=== PATIENT | female | born 1995 | race Caucasian/White ===

== ENCOUNTER → 2024-02-27 10:40 | Outpatient (CLI) | payer OTHER, SELFPAY ==
[2024-02-27 11:42] LABS: Add Manual Diff / Slide Review NO; Basophils Absolute Auto 100 /uL (0-100); Basophils Percent Auto 0.5 % (0-2); Eosinophils Absolute Auto 0 /uL (0-450); Eosinophils Percent Auto 0.4 % (2-4); Hematocrit 37.5 % (36-46); Hemoglobin 12.8 g/dL (12.0-16.0); Lymphocytes Absolute Auto 2200 /uL (1100-4500); Lymphocytes Percent Auto 20.1 % (25-40); Mean Corpuscular HGB Conc 34.1 % (30-36); Mean Corpuscular Hemoglobin 29.6 PG (26-34); Mean Corpuscular Volume 86.9 fL (80-100); Monocytes Absolute Auto 400 /uL (0-900); Monocytes Percent Auto 3.8 % (3-14); Neutrophils Absolute Auto 8200 /uL (1500-7000); Neutrophils Percent Auto 75.2 % (50-75); Platelet Count 339 X10^3/uL (150-400); Red Blood Cell Count 4.32 X10^6/uL (4.0-5.2); Red Cell Distribution Width 12.7 % (11.6-14.8); White Blood Cell Count 10.9 X10^3/uL (4.5-11.0)
[2024-02-27 11:59] LABS: Hemoglobin A1C% w Est Avg Glu 4.8 % (4.0-6.0)
[2024-02-27 12:05] LABS: Appearance Urine UA CLEAR; Bilirubin Urine UA NEGATIVE (NEGATIVE); Color Urine UA YELLOW; Glucose Urine UA NEGATIVE (Negative); Ketones Urine UA NEGATIVE (NEGATIVE); Leukocyte Esterase Urine UA 1+ (NEGATIVE); Nitrite Urine UA NEGATIVE (Negative); Occult Blood Urine UA NEGATIVE (Negative); Protein Urine UA NEGATIVE (Negative); Specific Gravity Urine UA <=1.005 (1.000-1.035); Urobilinogen Urine UA 0.2 E.U./dL (0.2)
[2024-02-27 12:06] LABS: pH Urine UA 6.5 (4.5-8.0)
[2024-02-27 12:18] LABS: Bacteria Urine Moderate (10-30); RBC Urine 0-1/HPF (0-5/HPF); Urine Volume 10mL (spun); WBC Urine 1-5/HPF (0-5/HPF)
[2024-02-27 12:19] LABS: Squamous Epithelial Cell Urine 1-5 /HPF (0-5/HPF)
[2024-02-27 12:23] LABS: Natera Collection Specimen Collected
[2024-02-27 13:15] LABS: Hepatitis B Surface Antigen NEGATIVE s/c (NEGATIVE); Rubella Antibody IgG 18.5 IU/mL (>15)
[2024-02-27 13:31] LABS: HIV 1 & 2 Ab/Ag 4th Gen Combo NEGATIVE (NEGATIVE); Hep C Virus Ab w/Reflex Quant NEGATIVE s/c (NEGATIVE)
[2024-02-28 04:14] LABS: RPR Screen Non Reactive (Non Reactive)
[2024-02-28 09:09] LABS: Varicella IgG Antibody Reactive (Non Reactive)
== END ==
PROVIDERS: PCP Family Medicine; Referring Provider Family Medicine; Visit Provider Family Medicine
DX: Z34.01 Encounter for supervision of normal first pregnancy, first trimester (principal); E88.819 Insulin resistance, unspecified; E28.2 Polycystic ovarian syndrome
CPT/HCPCS: 36415; 80055; 81003; 81015; 83036; 86787; 86803; 86850; 86900; 86901; 87086; 87389

== ENCOUNTER → 2024-04-18 13:44 | Outpatient (CLI) | payer OTHER, SELFPAY | PROVIDERS: PCP Family Medicine; Visit Provider Family Medicine | DX: J02.9 Acute pharyngitis, unspecified (principal) | CPT/HCPCS: 87070 ==

== ENCOUNTER → 2024-05-22 13:50 | Outpatient (CLI) | payer OTHER, SELFPAY ==
--- NOTE | 2024-05-22 13:51 | DI.US.S_ITS ---
PROCEDURE: US OB >= 14 WEEKS FETUS INDICATIONS: Anatomy Scan OUTSIDE/PRIOR DATING DATA: Last menstrual period (LMP): 12/23/2023 LMP-based estimated date of delivery (LIBORIO): 09/28/2024 The calculations are made using the clinical LIBORIO of 09/28/2024 TECHNIQUE: Real-time scanning was performed of the fetus, with image documentation and biometric measurements. Endovaginal scanning: Not performed COMPARISON: None. FINDINGS: General: A single living intrauterine gestation is present. Presentation: Vertex Placenta: Placental position is anterior, without previa. Amniotic fluid index: 13.5 cm, normal range is 5-24 cm. Single deepest vertical pocket is 4.2 cm. heart rate: 143 beats per minute. Maternal cervical canal: 4.3 cm long. Normal lower limit is 2.5 cm. biometrics: Biparietal diameter: 4.8 cm, 20 weeks 3 days Head circumference: 17.8 cm, 20 weeks 2 days Abdominal circumference: 16.5 cm, 21 weeks 4 days Femur length: 3.5 cm, 21 weeks 1 day Clinically estimated gestational age: 21 weeks 4 days Composite gestational age from present scan: 20 weeks 6 days Estimated weight and percentile: 407 g, 26th percentile Anatomic survey: Neuro: Ventricles are non-dilated at less than 10 mm. Cisterna magna is normal at 3-11 mm. Cerebellum is normal in size and morphology. Nuchal skin fold: Normal at less than 6 mm between 14-21 weeks gestational age. Face: Nose and lips are normal. Facial profile not well visualized. Spine: No evidence for spina bifida. Heart: 4-chambered heart is present, with normal ventricular outflow tracts. Diaphragm: Diaphragm is intact. Stomach: Left-sided stomach is present. Kidneys: No hydronephrosis. Normal is less than 5 mm in 2nd trimester, less than 7 mm in 3rd trimester. Cord: 3-vessel cord has orthotopic insertion. Bladder: Normal in size. Extremities: All 4 extremities identified. IMPRESSION: 1. Single live intrauterine . size is concordant with clinical dates. 2. facial profile not well visualized due to positioning. 3. anatomic survey is otherwise within normal limits. Approved by: Ranjit Fan M.D. on 05/22/2024 at 20:44
== END ==
PROVIDERS: PCP Family Medicine; Referring Provider Family Medicine; Visit Provider Family Medicine
DX: Z34.92 Encounter for supervision of normal pregnancy, unspecified, second trimester (principal); Z3A.20 20 weeks gestation of pregnancy
CPT/HCPCS: 76811

== ENCOUNTER → 2024-06-10 14:35 | Outpatient (CLI) | payer OTHER, SELFPAY ==
[2024-06-10 17:37] LABS: GTT (PREG) 1 Hour PP 50gm Dose 121 mg/dL (76-139)
== END ==
PROVIDERS: PCP Family Medicine; Referring Provider Family Medicine; Visit Provider Family Medicine
DX: Z34.00 Encounter for supervision of normal first pregnancy, unspecified trimester (principal)
CPT/HCPCS: 36415; 82950

== ENCOUNTER → 2024-09-05 15:26 | Outpatient (CLI) | payer OTHER, SELFPAY ==
[2024-09-06 12:46] LABS: Strep Grp B PCR NEG for Grp B Strep
== END ==
LOC: LAB 15:26
PROVIDERS: PCP Family Medicine; Visit Provider Family Medicine
DX: Z34.00 Encounter for supervision of normal first pregnancy, unspecified trimester (principal)
CPT/HCPCS: 87653

== ENCOUNTER 2024-09-22 18:19 | Outpatient (CLI) | payer OTHER, SELFPAY ==
[2024-09-22 19:16] LABS: Basophils Absolute Auto 100 /uL (0-100); Basophils Percent Auto 0.5 % (0-2); Creatinine Urine Random 51.04 mg/dL; Mean Corpuscular Volume 88.8 fL (80-100); Monocytes Absolute Auto 700 /uL (0-900); Protein (Total) Urine Random 11 mg/dL (0-12); Protein Creatinine Ratio Urine 0.21 GRAM/24H
[2024-09-22 19:20] LABS: Add Manual Diff / Slide Review NO; Eosinophils Absolute Auto 0 /uL (0-450); Eosinophils Percent Auto 0.4 % (2-4); Hematocrit 36.8 % (36-46); Hemoglobin 12.4 g/dL (12.0-16.0); Lymphocytes Absolute Auto 2700 /uL (1100-4500); Lymphocytes Percent Auto 22.8 % (25-40); Mean Corpuscular HGB Conc 33.7 % (30-36); Mean Corpuscular Hemoglobin 29.9 PG (26-34); Monocytes Percent Auto 5.5 % (3-14); Neutrophils Absolute Auto 8500 /uL (1500-7000); Neutrophils Percent Auto 70.8 % (50-75); Platelet Count 288 X10^3/uL (150-400); Red Blood Cell Count 4.15 X10^6/uL (4.0-5.2); Red Cell Distribution Width 14.1 % (11.6-14.8)
[2024-09-22 19:28] LABS: Alanine Aminotransferase 15 IU/L (<35); Albumin 3.7 g/dL (3.5-5.0); Albumin Globulin Ratio 1.2 (1.0-2.8); Alkaline Phosphatase 91 U/L (38-126); Aspartate Aminotransferase 20 IU/L (14-36); BUN Creatinine Ratio 22.6 (6-22); Bilirubin Total 0.3 mg/dL (0.2-1.3); Blood Urea Nitrogen 12 mg/dL (7-17); Carbon Dioxide 17 mmol/L (22-32); Chloride 108 mmol/L (98-107); Estimated Glomerular Filt Rate > 60 mL/min (>60); Globulin 3.2 g/dL (1.7-4.1); Glucose 89 mg/dL (70-99); HEMOLYSIS < 15 (0-50); Potassium 3.5 mmol/L (3.4-5.1); Sodium 133 mmol/L (137-145); Total Protein 6.9 g/dL (6.3-8.2); Uric Acid 4.7 mg/dL (2.5-6.2)
--- NOTE | 2024-09-22 20:06 | P.TNLD_ITS ---
Visit Information Visit Information Date of evaluation: 09/22/24 Primary OB Provider: Esteban Kenney On-call OB Provider: Sheryl Shafer Reason for Evaluation: Yes other Comments/Additional reasons for admission: Pt is a 28 year old G1 at 39 weeks gestation who presents with elevated BP at home 130's/90's. No JOHNSON currently or visual changes. Good FM.. Vital Signs Vital Signs: BP 110's/70's [facility] Medical History (Updated 07/14/24 @ 21:56 by Esteban Kenney MD) Recurrent UTI Surgical History (Updated 02/26/24 @ 11:06 by Chayo Padgett, RN) History of removal of skin mole [place] teeth extracted Family History (Updated 02/26/24 @ 11:40 by Chayo Padgett, RN) Grandfather Prostate cancer Aunt Hypertension Hypoglycemia Hypothyroidism Grandmother Endometriosis Mother Endometriosis Ovarian cyst Cervical polyp Blood dyscrasia Preeclampsia Family/Other SMA (spinal muscular atrophy) Grandfather Myasthenia gravis Prostate cancer Social History marital status: number of children: 0 household members: spouse lives independently: Yes caregiver/support person: No housing: condominium pets and animals: Yes (cat and dog, aware of precautions) education level: college occupational status: employed current occupational exposures/hazards: No special prisca needs: No travel history: recent seatbelt use: always helmet use: No water heater temp set < 120 deg: No (will have adjust prior to delivery) working smoke detector in home: Yes fire extinguisher in home: Yes carbon monox detector in home: Yes firearms in home: Yes firearms unloaded and locked: Yes do you feel safe at home: Yes second hand exposure: No alcohol intake: former substance use type: does not use during the past year weight has: remained stable well-balanced diet: daily or most days daily servings fruits/ve-4 caffeine: Yes (single AM cup coffee) Type(s) of exercise: walking Objective Labs 09/22/24 18:36 09/22/24 18:36 Labs: Laboratory Results - last 24 hr 09/22/24 18:36 WBC 12.0 H RBC 4.15 Hgb 12.4 Hct 36.8 MCV 88.8 MCH 29.9 MCHC 33.7 RDW 14.1 Plt Count 288 Neut % (Auto) 70.8 Lymph % (Auto) 22.8 L [place] % (Auto) 5.5 Eos % (Auto) 0.4 L Baso % (Auto) 0.5 Neut # (Auto) 8500 H Lymph # (Auto) 2700 [place] # (Auto) 700 Eos # (Auto) 0 Baso # (Auto) 100 Sodium 133 L Potassium 3.5 Chloride 108 H Carbon Dioxide 17 L BUN 12 Creatinine 0.53 Estimated GFR > 60 BUN/Creatinine Ratio 22.6 H Glucose 89 Uric Acid 4.7 Calcium 9.0 Total Bilirubin 0.3 AST 20 ALT 15 Alkaline Phosphatase 91 Total Protein 6.9 Albumin 3.7 Globulin 3.2 Albumin/Globulin Ratio 1.2 U Random Total Protein 11 Urine Creatinine 51.04 Protein/Creatinin Ratio 0.21 Blood Type A Positive Evaluation Evaluation Baseline heart rate: 135 Variability: Moderate (11-25) monitor accelerations: Present Monitor Decelerations: Absent Diagnosis, Plan/Disposition Plan/Disposition Plan: Assessment: 28 year old G1 at 39 wks gest with elevated BP at home Normal BP and labs Reactive NST Plan: Discharge to home F/U with Dr. Kenney as scheduled on S/S of PEC reviewed
[2024-09-22 20:10] VITALS: BP 117/77; PULSE 92; RESP 17; TEMP 36.8
== END 2024-09-22 19:55 | disposition home or self-care (01) ==
LOC: OB 09-24 14:41
PROVIDERS: PCP Family Medicine; Referring Provider Obstetrics & Gynecology; Visit Provider Obstetrics & Gynecology
DX: O26.893 Other specified pregnancy related conditions, third trimester (principal); R03.0 Elevated blood-pressure reading, without diagnosis of hypertension; Z3A.39 39 weeks gestation of pregnancy
CPT/HCPCS: 36415; 59025; 80053; 84550; 85025; 86850; 86900; 86901; G0378; G0379

== ENCOUNTER → 2024-09-26 16:41 | Outpatient (CLI) | payer OTHER, SELFPAY ==
[2024-09-26 17:19] LABS: Hematocrit 37.2 % (36-46); Hemoglobin 12.3 g/dL (12.0-16.0); Mean Corpuscular Hemoglobin 29.2 PG (26-34); Mean Corpuscular Volume 88.7 fL (80-100); Platelet Count 300 X10^3/uL (150-400); Red Cell Distribution Width 14.3 % (11.6-14.8)
[2024-09-26 17:23] LABS: Creatinine Urine Random 55.33 mg/dL; Protein (Total) Urine Random 7 mg/dL (0-12); Protein Creatinine Ratio Urine 0.12 GRAM/24H
[2024-09-26 17:42] LABS: Alanine Aminotransferase 18 IU/L (<35); Albumin 3.7 g/dL (3.5-5.0); Albumin Globulin Ratio 1.2 (1.0-2.8); Alkaline Phosphatase 94 U/L (38-126); Aspartate Aminotransferase 24 IU/L (14-36); Bilirubin Total 0.2 mg/dL (0.2-1.3); Blood Urea Nitrogen 12 mg/dL (7-17); Calcium 9.3 mg/dL (8.4-10.2); Carbon Dioxide 21 mmol/L (22-32); Chloride 106 mmol/L (98-107); Estimated Glomerular Filt Rate > 60 mL/min (>60); Globulin 3.2 g/dL (1.7-4.1); Glucose 83 mg/dL (70-99); HEMOLYSIS < 15 (0-50); Sodium 135 mmol/L (137-145); Total Protein 6.9 g/dL (6.3-8.2)
[2024-09-26 20:27] LABS: Neutrophils Absolute Manual 7560 /uL (3000-5900); Total Cells Counted 100
[2024-09-26 20:28] LABS: RBC Morphology Normal Morphology
== END ==
PROVIDERS: PCP Family Medicine; Referring Provider Family Medicine; Visit Provider Family Medicine
DX: O14.90 Unspecified pre-eclampsia, unspecified trimester (principal)
CPT/HCPCS: 36415; 80053; 82570; 84156; 85025

== ENCOUNTER 2024-09-27 07:17 | Inpatient (IN) | payer OTHER, SELFPAY ==
[2024-09-27 08:00] VITALS: BP 120/58
--- NOTE | 2024-09-27 08:06 | PM.OBHP.IH.1 ---
OB HPI Date/Time Date of admission: 09/27/24 Date Patient Seen: 09/27/24 Time Patient Seen: 07:50 History of Present Condition Chief complaint: INDUCTION Date of Last Menstrual Period: 12/23/23 LIBORIO Calculator Estimated Delivery Date Method Current WG Current Estimate 09/28/24 LMP (Certain) 39w 6d Estimated Gestational Age (weeks): 39+6 : 1 Para: 0 Narrative: 28-year-old presenting for IOL at term. Endorses normal movement. Denies vaginal bleeding or denies leakage of fluid. Antepartum course notable for PCOS on metformin, anemia on iron supplementation. care: good care Dating criteria OB: LMP confirmed by 1st trimester US Ultrasounds: normal 1st trimester US and normal mid trimester US Obstetrical complications: none Medical complications OB: none Indications Indication for induction OB: other Preadmission Labs Last OB Lab Results: Blood Type A Positive 09/27/24 08:05 Antibody Screen Negative 09/27/24 08:05 Hct 35.4 % (36-46) L 09/27/24 08:05 Hgb 12.1 g/dL (12.0-16.0) 09/27/24 08:05 Hep Bs Antigen Negative s/c (NEGATIVE) 02/27/24 11:23 Hepatitis C Antibody Negative s/c (NEGATIVE) 02/27/24 11:23 Rubella Antibody 18.5 IU/mL (>15) 02/27/24 11:23 VZV IgG Antibody Reactive (Non Reactive) 02/27/24 11:23 Glucose 1 Hr 50 gm 121 mg/dL (76-139) 06/10/24 15:48 Hemoglobin A1c 4.8 % (4.0-6.0) 02/27/24 11:23 Group B Strep (PCR) Neg for grp b strep 09/05/24 16:10 Genetic Screens: Cell-free DNA: Normal Evaluation Evaluation Baseline heart rate: 130 Variability: Moderate (11-25) monitor accelerations: Present Monitor Decelerations: Absent Contraction Frequency (minutes): 5 Uterine Contraction Intensity: Mild Category of Tracing: Reactive Status: Category l Dilation: 1-2 cm Effacement: >/=80% station: -2 Position of cervix: mid Consistency: medium Gonzalez score: 7 PFSH Medical History (Updated 09/26/24 @ 17:11 by Esteban Kenney MD) Recurrent UTI Surgical History (Updated 02/26/24 @ 11:06 by Chayo Padgett, RN) History of removal of skin mole [place] teeth extracted Family History (Updated 02/26/24 @ 11:40 by Chayo Padgett, RN) Grandfather Prostate cancer Aunt Hypertension Hypoglycemia Hypothyroidism Grandmother Endometriosis Mother Endometriosis Ovarian cyst Cervical polyp Blood dyscrasia Preeclampsia Family/Other SMA (spinal muscular atrophy) Grandfather Myasthenia gravis Prostate cancer Social History marital status: number of children: 0 household members: spouse lives independently: Yes caregiver/support person: No housing: condominium pets and animals: Yes (cat and dog, aware of precautions) education level: college occupational status: employed current occupational exposures/hazards: No special prisca needs: No travel history: recent seatbelt use: always helmet use: No water heater temp set < 120 deg: No (will have adjust prior to delivery) working smoke detector in home: Yes fire extinguisher in home: Yes carbon monox detector in home: Yes firearms in home: Yes firearms unloaded and locked: Yes do you feel safe at home: Yes second hand exposure: No alcohol intake: former substance use type: does not use during the past year weight has: remained stable well-balanced diet: daily or most days daily servings fruits/ve-4 caffeine: Yes (single AM cup coffee) Type(s) of exercise: walking Meds Home Medications and Allergies Home Medications Medication Instructions Recorded Confirmed Type metformin 500 mg tablet 500 mg PO DAILY 03/19/24 09/26/24 History ferrous sulfate 325 mg (65 mg 325 mg PO Q OTHER DAY #90 tabs 07/12/24 09/26/24 Rx iron) tablet,delayed release vitamin with calcium 1 tab PO DAILY 09/05/24 09/26/24 History no.72-iron 27 mg-folic acid 1 mg tablet (M-Estella Plus) Allergies Allergy/AdvReac Type Severity Reaction Status Date / Time No Known Drug Allergies Allergy Verified 09/05/24 15:52 Review of Systems Review of Systems ROS: Yes All systems reviewed with the patient and are negative except as otherwise documented OB Exam Narrative Exam Narrative: General: Well-nourished, no distress HEENT: NC/AT, EOMI, moist mucous membranes CV: RRR, normal S1 S2, no m/g/r Resp: CTAB Abd: Gravid, soft, NTND, +BS Ext: Full ROM, no edema Skin: No rash or lesions Neuro: A&O x3, normal tone, no focal deficits Objective Labs 09/27/24 08:05 Assessment and Plan Assessment and Plan Assessment and Plan narrative: 28-year-old at GA 39+6 weeks presenting for IOL. Antepartum course notable for PCOS on metformin, anemia on iron supplementation. -admit to L&D -cervical ripening with misoprostol q4h -GBS negative, ppx not indicated -pain control prn if desired by patient -PPH risk low -VTE risk low, SCDs with epidural -anticipate vaginal delivery Time-Based Coding :: 20 minutes spent with patient and on the chart (including review of chart, obtaining history, exam, reviewing outside data, placing orders, documenting exam and treatment plan, and counseling patient) on 09/27/2024.
[2024-09-27 08:21] LABS: Add Manual Diff / Slide Review NO; Basophils Absolute Auto 100 /uL (0-100); Basophils Percent Auto 0.5 % (0-2); Eosinophils Absolute Auto 100 /uL (0-450); Eosinophils Percent Auto 0.9 % (2-4); Hematocrit 35.4 % (36-46); Hemoglobin 12.1 g/dL (12.0-16.0); Lymphocytes Absolute Auto 2800 /uL (1100-4500); Lymphocytes Percent Auto 21.2 % (25-40); Mean Corpuscular HGB Conc 34.2 % (30-36); Mean Corpuscular Hemoglobin 30.1 PG (26-34); Mean Corpuscular Volume 88.2 fL (80-100); Monocytes Absolute Auto 500 /uL (0-900); Monocytes Percent Auto 4.2 % (3-14); Neutrophils Absolute Auto 9600 /uL (1500-7000); Neutrophils Percent Auto 73.2 % (50-75); Platelet Count 256 X10^3/uL (150-400); Red Blood Cell Count 4.02 X10^6/uL (4.0-5.2); Red Cell Distribution Width 14.4 % (11.6-14.8); White Blood Cell Count 13.1 X10^3/uL (4.5-11.0)
[2024-09-27] MEDS: miSOPROStoL 25 MCG TABLET 50 MCG PO (08:34)
[2024-09-27] MEDS: LACTATED RINGERS 1,000 ML 100 ML IV (13:05)
[2024-09-27] MEDS: OXYTOCIN PREMIX 30 UNIT/500 ML PLAST..BAG IV (13:05)
--- NOTE | 2024-09-27 18:24 | P.PCNOB_ITS ---
Labor & Delivery Delivery date: 09/27/24 Delivery Time: 17:16 Intrapartal Events: None Cervical ripening method: per misoprostal protocol Delivery augmentation: rupture of membranes and pitocin Delivery monitor: external FHT Route of delivery: L&D Laceration Description: Perineal - 1st Degree and Vaginal - 1st Degree Delivery repair: vicryl Quantitative Blood Loss: 277 Anesthesia Type: None Narrative: Patient fully dilated at 1652 and began pushing at 1655. Spontaneous vaginal delivery of a viable female in the RHIANNON position occurred at 1716. The was suctioned and stimulated at the perineum, and gave appropriate cry with movement of all extremities. Delayed cord clamping was observed for over 60 seconds. The cord was clamped and cut, and the handed to mother for skin to skin. Cord blood and segment were obtained. The placenta was delivered without difficulty using gentle cord traction and found to be intact with a 3- vessel cord. After fundal massage the uterus was firm and bleeding stopped. The vagina and cervix were examined for lacerations. First-degree perineal and vaginal sidewall lacerations were noted and repaired with 3-0 Vicryl suture in the usual fashion. Patient stable with rooming in, bonding skin to skin and attempting to breastfeed. Baby 1: Infant gender: Female Presentation: vertex Position: Right Occiput Anterior Placenta delivery description: Spontaneous Cord Vessel Description: 3 Vessels, Nuchal Cord, Loose and Reduced score (1 min): 7 score (5 min): 9 weight: 7 lb 11 oz Plan for aftercare: Routine care
[2024-09-27] MEDS: DERMOPLAST SPRAY 20% 60 ML 1 SPRAY TOP (20:23)
[2024-09-27] MEDS: LANOLIN OINT 7 GM 1 APPLIC TOP (20:24)
[2024-09-27] MEDS: WITCH HAZEL/GLYCERIN PADS 1 EACH TOP (20:24)
[2024-09-27] MEDS: IBUPROFEN 600 MG TABLET PO (21:26)
[2024-09-28] MEDS: ACETAMINOPHEN 325 MG TABLET 650 MG PO ×3 (00:55→13:33)
[2024-09-28] MEDS: IBUPROFEN 600 MG TABLET PO ×2 (03:46→09:43)
--- NOTE | 2024-09-28 15:26 | P.DS_ITS ---
Discharge Providers Provider Date of admission: 09/27/24 07:17 Discharge Date: 09/28/24 Primary care physician: Esteban Kenney MD Consults: 09/28/24 18:38 Consult to Health Promotion Manager Routine Comment: Discharge provider: Esteban Kenney MD Summary Hospital Course Date Patient Seen: 09/28/24 Time Patient Seen: 15:26 Diagnoses: #term # Hospital Course: Admitted for IOL on 09/27/2024. Progressed adequately with low-dose Pitocin augmentation to complete dilation over the course of 10 hours. She had an uncomplicated of a live female with first-degree perineal and vaginal lacerations. Her course was uncomplicated. At discharge patient is ambulating well, tolerating normal diet, breast-feeding without difficulty, and pain is adequately controlled. She reports bleeding is heavier normal menses. Peripartum Data Infant Delivery Method: Natural Vaginal Laceration Description: Perineal - 1st Degree and Vaginal - 1st Degree complications: none 1: Gender: Female Disposition of : home Discharge Diagnosis (1) (spontaneous vaginal delivery): Start Date: 09/27/24 Status: Acute Status at Discharge Cognitive/behavioral status at discharge: oriented Functional status at discharge: independent ambulation Overall status at discharge: patient is progressing back to baseline Time Spent with Patient Time attestation: Total time spent providing and/or coordinating discharge services: 20 minutes Objective Labs 09/27/24 08:05 Exam Narrative Exam Narrative: General: Well-appearing, well-nourished, no distress HEENT: Moist mucous membranes, no pallor CV: Regular rate and rhythm, no murmur auscultated Resp: CTAB, comfortable work of breathing Abdomen: Soft, bowel sounds present, fundus firm below umbilicus with appropriate tenderness, incision [clean/dry/intact][oozing][open] Extremities: No edema, no calf tenderness or evidence of DVT Discharge Plan Discharge Plan Patient Disposition: Home Discharge orders & Medications Prescriptions: New acetaminophen 325 mg Tablet 650 mg PO Q6H PRN (Reason: Fever/Mild Pain (1-3)) Qty: 60 0RF Dermoplast (with menthol) 20-0.5 % Aerosol 1 spray topical Q1HR PRN (Reason: perineal pain) Qty: 78 0RF ibuprofen 600 mg Tablet 600 mg PO Q6HR PRN (Reason: Pain, Mild (1-3)) Qty: 60 0RF Purelan Cream 1 applic topical PRN PRN (Reason: Tenderness) Qty: 7 6RF Continued ferrous sulfate 325 mg (65 mg iron) tablet,delayed release (DR/EC) 325 mg PO Q OTHER DAY Qty: 90 0RF M-Estella Plus 27 mg iron- 1 mg tablet 1 tab PO DAILY metformin 500 mg tablet 500 mg PO DAILY Follow up/Referrals: Esteban Kenney MD [Primary Care Provider] - Visit Report/Discharge Packet Stand Alone Forms: Patient Portal/API, Stroke Signs & Symptoms Discharge Data Primary Care Provider: Esteban Kenney Attending Provider: Esteban Kenney Admit Date/Time: 09/27/24 07:17
[2024-09-28 16:49] VITALS: BP 120/58; PULSE 72; RESP 12; TEMP 36.8
== END 2024-09-28 16:40 | disposition home or self-care (01) | DRG 807 ==
PROVIDERS: Admitting Provider Family Medicine; PCP Family Medicine; Referring Provider Family Medicine; Visit Provider Family Medicine
DX: O99.284 Endocrine, nutritional and metabolic diseases complicating childbirth (principal); Z37.0 Single live birth; E28.2 Polycystic ovarian syndrome; Z3A.39 39 weeks gestation of pregnancy; O70.0 First degree perineal laceration during delivery
CPT/HCPCS: 36415; 59050; 59200; 59400; 85025; 86850; 86900; 86901; G0378; G0379; J2590